=== PATIENT | female | born 1960 | race Caucasian/White ===

== ENCOUNTER 2022-09-21 05:35 | Day surgery (SDC) | payer OTHER ==
[~2022-09-21] VITALS: Ht 162.6 cm; Wt 56.8 kg
--- NOTE | ~2022-09-21 | OR ---
[facility] [address] [facility] [place], [place] [address] [place] DATE OF OPERATION: 09/21/2022 SURGEON: Jey Gee DPM PREOPERATIVE DIAGNOSES: 1. Hallux valgus with bunion deformity, right foot. 2. Hammertoe, right second digit. POSTOPERATIVE DIAGNOSES: 1. Hallux valgus with bunion deformity, right foot. 2. Hammertoe, right second digit. DBA DEVELOPER: Tommie Klein DPM. ANESTHESIA: IV general with regional block, right lower extremity. TUMBLER OPERATOR: Nathan. SPECIMEN: To pathology, none. PROCEDURES: 1. Bunionectomy with first metatarsal-cuneiform joint fusion and osteotomy of proximal phalanx, right hallux. 2. Hammertoe correction with proximal interphalangeal joint fusion, right second digit. PROCEDURE IN DETAIL: The patient was brought to the operating room and placed on the table in the supine position. Anesthesia Department administered IV sedation and regional block right lower extremity, the right leg and foot was then prepped and draped in the usual sterile manner and the Esmarch was used for hemostasis. Procedure #1: Attention was initially directed to the right first MPJ where a linear longitudinal incision was made about 1 cm medial to the extensor hallucis longus tendon. The incision was initially about 6 cm in length extending on through the base of the hallux. The incision was initially full-thickness through the dermis, then deepened through subcutaneous tissue using careful dissection and cautery as necessary for PATIENT NAME: CHRISTINA TRIANA OPERATIVE REPORT DATE OF : 64 REPORT #: [id number] PHYSICIAN: JEY GEE DPM PCP: ABRAHAM FRIEND REPORT IS CONFIDENTIAL AND NOT TO BE RELEASED WITHOUT AUTHORIZATION [facility] [address] [place], [place] [address] Draft hemostasis. Once at the level of deep fascia and joint capsule, soft tissues were reflected medially to expose the bony prominence to the medial first metatarsal head, which was then resected using power instrumentation, removing about 2 mm of bone. At this time, attention was directed to the first intermetatarsal space where a lateral release was performed. At this time, the incision was extended proximally to the first metatarsal-cuneiform joint level and dissection deepened to the first metatarsal-cuneiform joint. Soft tissues were reflected exposing the joint and the joint distractor then used to open the joint and prepare the joint surfaces for fusion. This was accomplished with use of a hand and power instrumentation. The joint alignment was then inspected and position confirmed with intraoperative fluoroscopy. This was secured temporarily with use of K-wires while the plate and screws were placed medially over the first metatarsal-cuneiform joint. This was a locking plate with screws into both the locking screws into the metatarsal and the first cuneiform. One of the proximal locking screws extended into the second cuneiform as well. Alignment and position then checked at the first MPJ. The hallux position was not able to provide adequate alignment without an osteotomy to the hallux. Therefore at this time, an osteotomy was performed to the base of the proximal phalanx, removing a small wedge of bone medially and securing this with a bone staple. Position and alignment to the toe then confirmed with intraoperative fluoroscopy and surgical site then irrigated with copious amounts of normal saline. Any remaining rough bone to the first metatarsal head smoothed at this time with power instrumentation and the joint capsule then closed using 3-0 Vicryl. Subcutaneous tissue closed using 4-0 Vicryl and skin closed using skin randall. At this time, the transition was made to the hammertoe correction for the right second digit. However, 2 hours had been reached on the tourniquet time and the tourniquet was removed and the remainder of the surgery performed without tourniquet. Procedure #2: Hammertoe correction, right second digit. A transverse elliptical incision made over the dorsal aspect of the right second digit PIPJ and the skin ellipse removed. A transverse tenotomy/capsulotomy performed to open the PIPJ and soft tissues reflected proximally to expose the head of the proximal phalanx which was then resected using power instrumentation. A small amount of the cartilage and bone removed from the base of the intermediate phalanx as well to prepare the joint for fusion. The implant then placed into the proximal and distal phalanges at the PIPJ and the taper jonathan then placed into the implant and secured the toe into position. The position then checked with intraoperative fluoroscopy and this was noted to have good alignment. The surgical site then irrigated with normal saline and the joint capsule and tendon reapproximated PATIENT NAME: CHRISTINA TRIANA OPERATIVE REPORT DATE OF : 64 REPORT #: [id number] PHYSICIAN: JEY GEE DPM PCP: ABRAHAM FRIEND REPORT IS CONFIDENTIAL AND NOT TO BE RELEASED WITHOUT AUTHORIZATION [address] [address] [place] with 4-0 Vicryl and the skin closed with 5-0 nylon. Prior to the hammertoe procedure at the PIPJ, the extensor tendon was noted to be significantly tight with elevation to the proximal phalanx. Therefore, prior to the hammertoe procedure, an extensor tenotomy was made about 2-3 cm proximal to the MPJ. This was a percutaneous tenotomy. INTRAOPERATIVE COMPLICATIONS: None. ESTIMATED BLOOD LOSS: Less than 10 mL. The patient tolerated the procedure and anesthesia well and left the operating room with vital signs stable and vascular status intact to the right foot as evidenced by hyperemia with removal of the Esmarch. A postoperative injection was given prior to placement of the dressings using 8 mL 9:1 mixture, 0.5% ropivacaine plain and dexamethasone phosphate 4 mg/mL. CHARLY Fallon/MODL /[id number] Copies: ~ PATIENT NAME: CHRISTINA TRIANA OPERATIVE REPORT DATE OF : 64 REPORT #: [id number] PHYSICIAN: JEY GEE DPM PCP: ABRAHAM FRIEND REPORT IS CONFIDENTIAL AND NOT TO BE RELEASED WITHOUT AUTHORIZATION
[~2022-09-21 05:35] MED LIST: CALCIUM500 MG PO; CO Q-1010 MG PO; ESTRADIOL1 EA10 TD; GLUCOSAMINE-MS1 EAC4 PO; LEVOTHYROXINE50 MCG PO; LIOTHYRONINE SO5 MCG PO; LIPITOR20 MG PO; VITAMIN B COMP1 EACH PO; VITAMIN D400 UNIT PO
[2022-09-21] MEDS ORDERED: OXYCODONE-ACET1 EAC1 PO (06:08)
--- NOTE | 2022-09-21 08:40 | NUR ---
PT TAKEN TO OR FOR SURGERY. CONNECTED WITH HER JAYDEN IN [place]. GAVE SUPPORT JAYDEN IS HOPEFUL THIS WILL HELP WITH A VERY PAINFUL SITUATION PT HAS DEALT WITH FOR SEVERAL YEARS NOW. SHE IS A [employer] AND [employer] AND THIS HAS MADE THAT VERY DIFFICULT. ANSWERED HIS QUESTIONS, GAVE BLESSING AND WILL FOLLOW
--- NOTE | 2022-09-21 10:43 | NUR ---
09/21/22 1043 Analia Peña TO PACU, ALERT AWAKE AND SITTING UP. DENIES PAIN OR SENSATION TO RIGHT FOOT. CIRCULATION INTACT.
== END 2022-09-21 11:45 | disposition home or self-care (01) ==
LOC: DS 05:35
PROVIDERS: ATTEND Podiatrist Foot Surgery
PROC: 0QBN0ZZ Excision of Right Metatarsal, Open Approach (ICD-10-PCS; principal; 2022-09-21 07:30)
DX: M20.11 Hallux valgus (acquired), right foot (principal); M21.611 Bunion of right foot; M20.41 Other hammer toe(s) (acquired), right foot; J45.909 Unspecified asthma, uncomplicated; I10 Essential (primary) hypertension; M20.12 Hallux valgus (acquired), left foot
CPT/HCPCS: 73620; 73630; J0171; J0690; J1100; J1885; J2001; J2250; J2405; J2704; J2795; J3010; J7121